=== PATIENT | male | born 1990 | race Caucasian/White ===

== ENCOUNTER 2019-12-11 00:36 | Emergency (ER) | payer SELFPAY ==
[~2019-12-11] VITALS: Ht 167.6 cm; Wt 64.4 kg
[2019-12-11] MEDS ORDERED: IBUPROFEN 600MG TABLET PO STA (01:35)
[2019-12-11 02:13] LABS: CHLORIDE 104 mEq/L (98-107)
[2019-12-11 02:16] LABS: BASOPHILS % 0.5 % (0.0-2.0); EOSINOPHILS % 1.7 % (0.0-5.0); HEMATOCRIT. 39.1 % (42.0-52.0); HEMOGLOBIN. 13.3 g/dL (14.0-18.0); LYMPHOCYTES % 14.3 % (20.0-50.0); MEAN CORPUSCULAR HEMOGLOBIN 28.5 pg (28.0-32.0); MEAN CORPUSCULAR VOLUME 83.4 fL (80.0-94.0); MEAN PLATELET VOLUME 6.6 fl (7.4-10.4); MONOCYTES % 9.7 % (2.0-8.0); NEUTROPHILS % 73.8 % (40.0-76.0); PLATELET 508 x1000/uL (130-400); RED BLOOD CELL COUNT 4.69 mill/uL (4.7-6.1); RED CELL DISTRIBUTION WIDTH 14.3 % (11.6-14.6)
[2019-12-11 03:09] VITALS: BP 119/75
== END 2019-12-11 03:11 | disposition home or self-care (01) ==
LOC: ER 00:36
DX: T81.41XA Infection following a procedure, superficial incisional surgical site, initial encounter (principal); L08.89 Other specified local infections of the skin and subcutaneous tissue; Y83.9 Surgical procedure, unspecified as the cause of abnormal reaction of the patient, or of later complication, without mention of misadventure at the time of the procedure; Y92.018 Other place in single-family (private) house as the place of occurrence of the external cause
CPT/HCPCS: 36415; 80053; 85025; 99283